=== PATIENT | male | born 1965 | race Caucasian/White ===

== ENCOUNTER → 2022-08-22 09:39 | Outpatient (BNVA) | payer BC, SELFPAY | PROVIDERS: PCP Family Medicine Adult Medicine; Visit Provider Family Medicine Adult Medicine | DX: R79.89 Other specified abnormal findings of blood chemistry (principal); Z90.49 Acquired absence of other specified parts of digestive tract; E03.9 Hypothyroidism, unspecified; Z78.9 Other specified health status; Z87.898 Personal history of other specified conditions; R55 Syncope and collapse; D86.9 Sarcoidosis, unspecified | CPT/HCPCS: 80053; 82040; 83036; 84270; 84403; 84443; 85025; G0103 ==

== ENCOUNTER → 2023-05-29 07:03 | Outpatient (BNVA) | payer BC, SELFPAY | PROVIDERS: PCP Family Medicine Adult Medicine; Visit Provider Family Medicine Adult Medicine | DX: E03.9 Hypothyroidism, unspecified (principal); Z87.898 Personal history of other specified conditions; E78.5 Hyperlipidemia, unspecified; Z12.5 Encounter for screening for malignant neoplasm of prostate | CPT/HCPCS: 80053; 80061; 83036; 84153; 84403; 84443; 85025 ==

== ENCOUNTER → 2024-10-14 07:20 | Outpatient (BNVA) | payer BC, SELFPAY | PROVIDERS: PCP Family Medicine; Visit Provider Family Medicine | DX: D86.9 Sarcoidosis, unspecified (principal) | CPT/HCPCS: 80053; 80061; 84403; 84439; 84443; 85025 ==